=== PATIENT | female | born 1970 | race Caucasian/White ===

== ENCOUNTER 2019-04-07 20:17 | Emergency (ER) | payer OTHER ==
--- NOTE | 2019-04-07 20:56 | ED Physician Chart ---
ED Chief Complaint/HPI - Patient Information Date Seen:: 04/07/19 Time Seen:: 20:55 Chief Complaint:: Right quadrant abdominal pain History of Present Illness:: 49 yo female had abdominal pain for 8 days worsened for 4 days without nausea, vomiting or diarrhea. Pt denied fever but had chills. Pt had history of constipation. Allergies:: Allergies Allergy/AdvReac Type Severity Reaction Status Date / Time No Known Allergies Allergy Verified 04/07/19 20:32 Vitals:: Vital Signs - 8 hr 04/07/19 20:25 Temp 98.5 F HR 89 RR 18 BP 117/74 O2 Sat % 94 ED Review of Systems - Review of Systems General/Constitutional: No fever, Chills Skin: No rash Head: No headache Eyes: No loss of vision ENT: No nasal drainage Neck: No neck pain Cardio Vascular: No chest pain Pulmonary: No SOB GI: No nausea, No vomiting, No diarrhea, Constipation Musculoskeletal: No bone or joint pain Neurological: No focal symptoms ED Past Medical History - Past Medical History Past Medical History: No significant medical hx Social History: Non Smoker, No Alcohol, No Drug Use Surgical History: (x 2), other (Left ovary removed) Family Medical History - Family Member Mother History Unknown: Yes Ethnicity: ED Physical Exam - Physical Examination General/Constitutional: Awake, Alert Head: Atraumatic Eyes: PERRL Skin: No skin lesions ENMT: Nasal exam nl Neck: No nuchal rigidity Respiratory: No Wheeze/Rhonchi/Rales Cardio Vascular: RRR, No murmur, gallop, rubs, NL S1 S2 Other GI comments:: Right quadrant tenderness Extremities: normal strength in all extremities Neuro/Psych: Normal motor strength, No focal deficits ED Labs/Radiology/EKG Results - Lab Results Results: Laboratory Last Values WBC 10.8 Th/cmm (4.8-10.8) 04/07/19 21:55 RBC 4.89 Mil/cmm (3.80-5.10) 04/07/19 21:55 Hgb 13.2 gm/dL (12-16) 04/07/19 21:55 Hct 39.4 % (41.0-60) L 04/07/19 21:55 MCV 80.7 fl (81-100) L 04/07/19 21:55 MCH 26.9 pg (27.0-31.0) L 04/07/19 21:55 MCHC Differential 33.4 pg (28.0-36.0) 04/07/19 21:55 RDW 13.3 % (11.5-20.0) 04/07/19 21:55 Plt Count 248 Th/cmm (150-400) 04/07/19 21:55 MPV 9.4 fl 04/07/19 21:55 Neutrophils % 61.4 % (40.0-80.0) 04/07/19 21:55 Lymphocytes % 26.9 % (20.0-50.0) 04/07/19 21:55 Monocytes % 9.2 % (2.0-10.0) 04/07/19 21:55 Eosinophils % 1.6 % (0.0-5.0) 04/07/19 21:55 Basophils % 0.9 % (0.0-2.0) 04/07/19 21:55 PT 9.9 SECONDS (9.5-11.5) 04/07/19 21:55 INR 0.95 (0.5-1.4) 04/07/19 21:55 PTT (Actin FS) 24.1 SECONDS (26.0-38.0) L 04/07/19 21:55 Sodium 140 mEq/L (136-145) 04/07/19 21:55 Potassium 3.6 mEq/L (3.5-5.1) 04/07/19 21:55 Chloride 104 mEq/L (98-107) 04/07/19 21:55 Carbon Dioxide 28.8 mEq/L (21.0-31.0) 04/07/19 21:55 Anion Gap 10.8 (7.0-16.0) 04/07/19 21:55 BUN 15 mg/dL (7-25) 04/07/19 21:55 Creatinine 0.7 mg/dL (0.6-1.2) 04/07/19 21:55 Est GFR ( Amer) > 60.0 ml/min (>90) 04/07/19 21:55 Est GFR (Non-Af Amer) > 60.0 ml/min 04/07/19 21:55 BUN/Creatinine Ratio 21.4 04/07/19 21:55 Glucose 114 mg/dL (70-105) H 04/07/19 21:55 Calcium 9.0 mg/dL (8.6-10.3) 04/07/19 21:55 Total Bilirubin 0.4 mg/dL (0.3-1.0) 04/07/19 21:55 AST 12 U/L (13-39) L 04/07/19 21:55 ALT 14 U/L (7-52) 04/07/19 21:55 Alkaline Phosphatase 69 U/L (34-104) 04/07/19 21:55 Total Protein 6.9 gm/dL (6.0-8.3) 04/07/19 21:55 Albumin 4.1 gm/dL (3.7-5.3) 04/07/19 21:55 Globulin 2.8 gm/dL 04/07/19 21:55 Albumin/Globulin Ratio 1.5 (1.0-1.8) 04/07/19 21:55 Amylase 38 U/L (29-103) 04/07/19 21:55 Lipase 31 U/L (11-82) 04/07/19 21:55 Urine Source MIDSTREAM 04/07/19 20:35 Urine Color YELLOW 04/07/19 20:35 Urine Clarity CLEAR (CLEAR) 04/07/19 20:35 Urine pH 5.5 (4.6 - 8.0) 04/07/19 20:35 Ur Specific Gilbert 1.020 (1.005-1.030) 04/07/19 20:35 Urine Protein NEGATIVE mg/dL (NEGATIVE) 04/07/19 20:35 Urine Glucose (UA) NEGATIVE mg/dL (NEGATIVE) 04/07/19 20:35 Urine Ketones NEGATIVE mg/dL (NEGATIVE) 04/07/19 20:35 Urine Blood NEGATIVE (NEGATIVE) 04/07/19 20:35 Urine Nitrate NEGATIVE (NEGATIVE) 04/07/19 20:35 Urine Bilirubin NEGATIVE (NEGATIVE) 04/07/19 20:35 Urine Urobilinogen 0.2 E.U./dL (0.2 - 1.0) 04/07/19 20:35 Ur Leukocyte Esterase NEGATIVE (NEGATIVE) 04/07/19 20:35 - Radiology Results Results: CT abdomen/pelvis: mild diverticulosis without diverticulitis, moderate stool throughout the colon. ED Assessment - Assessment General Assessment: Abdominal pain Diverticulosis Constipation Assessment/Comments:: CBC, CMP, PT/PTT, UA CT abdomen/pelvis Pantoprazole 40 mg PO ED Septic Shock - . Is Septic Shock (SBP<90, OR Lactate>4 mmol\L) present?: No - <6hrs of presentation: Vital Signs: Vital Signs - 8 hr 04/07/19 20:25 Temp 98.5 F HR 89 RR 18 BP 117/74 O2 Sat % 94 ED Reassessment (Disposition) - Reassessment Reassessment Condition:: Improved - Aftercare/Follow up Instructions Medication Prescribed:: Pantoprazle 10 mg qd x 7 days. Colace 100 mg bid x 7day - Patient Disposition Discharge/Transfer:: Home
[2019-04-07] MEDS ORDERED: Pantoprazole 40 mg EC Tab PO STA (21:11)
[2019-04-07] MEDS ORDERED: Pantoprazole 40 mg EC Tab PO ONE (21:58)
[2019-04-07 22:04] LABS: % BASOPHILS 0.9 % (0.0-2.0); % EOSINOPHILS 1.6 % (0.0-5.0); % LYMPHOCYTES 26.9 % (20.0-50.0); % MONOCYTES 9.2 % (2.0-10.0); % NEUTROPHILS 61.4 % (40.0-80.0); BASOPHILE ABSOLUTE 0.1 Th/cumm (0-0.2); EOSINOPHILE ABSOLUTE 0.2 Th/cmm (0.1-0.4); HEMATOCRIT 39.4 % (41.0-60); HEMOGLOBIN 13.2 gm/dL (12-16); LYMPHOCYTE ABSOLUTE 2.9 Th/cmm (1.5-3.0); MEAN CELL VOLUME 80.7 fl (81-100); MEAN CORPUSCULAR HEMOGLOBIN 26.9 pg (27.0-31.0); MEAN CORPUSCULAR HGB CONC 33.4 pg (28.0-36.0); MEAN PLATELET VOLUME 9.4 fl; NEUTROPHILE ABSOLUTE 6.6 Th/cmm (1.8-8.0); PLATELET COUNT 248 Th/cmm (150-400); RED BLOOD COUNT 4.89 Mil/cmm (3.80-5.10); RED CELL DISTRIBUTION WIDTH 13.3 % (11.5-20.0); WHITE BLOOD COUNT 10.8 Th/cmm (4.8-10.8)
[2019-04-07 22:15] LABS: INR 0.95 (0.5-1.4); PROTHROMBIN TIME (TEST) 9.9 SECONDS (9.5-11.5)
[2019-04-07 22:21] LABS: ALB/GLOB RATIO 1.5 (1.0-1.8); ALBUMIN 4.1 gm/dL (3.7-5.3); ALKALINE PHOSPHATASE 69 U/L (34-104); AMYLASE SERUM 38 U/L (29-103); ANION GAP 10.8 (7.0-16.0); BILIRUBIN,TOTAL 0.4 mg/dL (0.3-1.0); BUN - UREA NITROGEN 15 mg/dL (7-25); CARBON DIOXIDE 28.8 mEq/L (21.0-31.0); CHLORIDE 104 mEq/L (98-107); CREATININE - SERUM 0.7 mg/dL (0.6-1.2); GFR AFRICAN-AMERICAN > 60.0 ml/min (>90); GFR NON AFRICAN-AMERICAN > 60.0 ml/min; GLUCOSE 114 mg/dL (70-105); LIPASE 31 U/L (11-82); POTASSIUM SERUM 3.6 mEq/L (3.5-5.1); SGOT 12 U/L (13-39); SGPT/ALT 14 U/L (7-52); SODIUM SERUM 140 mEq/L (136-145); TOTAL PROTEIN,SERUM 6.9 gm/dL (6.0-8.3)
[2019-04-07 22:27] LABS: URINE SOURCE MIDSTREAM
[2019-04-07 22:28] LABS: URINE BILIRUBIN NEGATIVE (NEGATIVE); URINE BLOOD NEGATIVE (NEGATIVE); URINE GLUCOSE (UA) NEGATIVE (NEGATIVE); URINE KETONE NEGATIVE (NEGATIVE); URINE LEUKOCYTE ESTERASE NEGATIVE (NEGATIVE); URINE NITRATE NEGATIVE (NEGATIVE); URINE PH 5.5 (4.6 - 8.0); URINE PROTEIN NEGATIVE (NEGATIVE); URINE UROBILINOGEN 0.2 E.U./dL (0.2 - 1.0)
[2019-04-07 22:33] LABS: URINE CLARITY CLEAR (CLEAR); URINE COLOR YELLOW; URINE MICROSCOPIC INDICATED? NO
--- NOTE | 2019-04-08 09:53 | Diagnostic Imaging Report ---
CT abdomen and pelvis without intravenous contrast Indication: Abdominal pain Comparison: None, Technique: Axial images were obtained from the lung bases to the bilateral proximal femurs without IV contrast. Coronal reconstructions were made. total DLP: [id number], CTDI14.3 FINDINGS: Hypoventilatory and atelectatic changes of the lung bases are noted. Assessment of the solid organs is limited due to lack of IV contrast. There is fatty infiltration of the liver. No focal lesions. No focal splenic or pancreatic lesions. There is mild pancreatic gland atrophy. No focal adrenal lesions. Punctate calcification in the right retroperitoneal region anterior to the right kidney is noted probably vascular. No evidence of hydronephrosis or focal renal lesions.. Patient is status post hysterectomy. Moderate stool is noted. Minimal diverticulosis noted without diverticulitis. No appendicitis. Degenerative changes spine are noted mass along the lower lumbar spine. Injection granulomas of the buttocks are noted. IMPRESSION: Minimal Diverticulosis without evidence of diverticulitis. Moderate stool is noted throughout the colon. No evidence of appendicitis. Fatty infiltration of the liver. Status post hysterectomy.
== END 2019-04-07 23:24 | disposition home or self-care (01) ==
LOC: ER 20:17
DX: K57.90 Diverticulosis of intestine, part unspecified, without perforation or abscess without bleeding (principal); K59.00 Constipation, unspecified; Z98.890 Other specified postprocedural states
CPT/HCPCS: 36415-UA; 80053-TC; 81003-TC; 82150-TC; 83690-TC; 85025-TC; 85610-TC; Z7610